=== PATIENT | male | born 1975 | race African-American/Black ===

== ENCOUNTER 2022-01-21 14:47 | Outpatient (CLI) | payer OTHER, SELFPAY ==
--- NOTE | ~2022-01-21 | XR_ITS ---
XR chest 2V 01/21/2022 15:22 Indication: Tobacco use. Procedure: 2 view chest Comparison: 10/28/2015 Findings: Subtle left perihilar/infrahilar airspace disease, suspicious for pneumonia. Heart size nor mal. No pleural effusion or pneumothorax. No edema. Impression: 1: Subtle left perihilar/infrahilar airspace disease, suspicious for pneumonia. Reviewed, dictated and finalized at location A. Impression: 1: Subtle left perihilar/infrahilar airspace disease, suspicious for pneumonia.
[2022-01-21 16:54] LABS: Hematocrit 45.2 % (42.0-52.0); Hemoglobin 15.6 g/dL (14.0-18.0); Mean Corpuscular HGB Conc 34.5 g/dl (32-36); Mean Corpuscular Hemoglobin 31.5 pg (26-34); Mean Corpuscular Volume 91.1 fl (80-100); Mean Platelet Volume 11.8 fl (7.4-10.4); Platelet Count Result 257 k/mm3 (150-375); Red Blood Count 4.96 M/mm3 (4.6-6.20); Red Cell Distribution Width 13.6 % (11.5-14.5); White Blood Count 13.9 K/mm3 (4.5-10.0)
[2022-01-21 18:36] LABS: Vitamin D 25 Hydroxy 22.3 ng/mL
== END 2022-01-21 14:48 | disposition home or self-care (01) ==
LOC: ANHIMG 15:04
PROVIDERS: PCP Emergency Medicine; Visit Provider Emergency Medicine
DX: D69.6 Thrombocytopenia, unspecified (principal); Z72.0 Tobacco use
CPT/HCPCS: 36415; 71046; 82306; 85027

== ENCOUNTER 2022-02-16 13:21 | Outpatient (CLI) | payer OTHER, SELFPAY ==
--- NOTE | ~2022-02-16 | XR_ITS ---
EXAMINATION: XR chest 2V Exam Date/Time: 02/16/2022 13:35 CDT CLINICAL HISTORY: PHEUMONIA Comparison: 01/21/2022 and 10/28/2015. RESULT: Lines, tubes, and devices: None. Lungs and pleura: Subtle ill-defined groundglass opacities in the lower lungs. Positive spine sign in the lateral view. Cardiomediastinal silhouette: Stable cardiomediastinal silhouette. Other: No acute osseous or upper abdominal finding. IMPRESSION: Pulmonary findings may reflect pneumonia in the appropriate clinical context, to include atypical/vir al etiologies. Reviewed, dictated and finalized at location K. IMPRESSION: Pulmonary findings may reflect pneumonia in the appropriate clinical context, t o include atypical/viral etiologies.
== END 2022-02-16 13:22 | disposition home or self-care (01) ==
PROVIDERS: PCP Emergency Medicine; Visit Provider Emergency Medicine
DX: J18.9 Pneumonia, unspecified organism (principal)
CPT/HCPCS: 71046

== ENCOUNTER 2022-03-26 11:40 | Outpatient (CLI) | payer OTHER, SELFPAY ==
--- NOTE | ~2022-03-26 | XR_ITS ---
XR chest 2V DATE: 03/26/2022 12:04 INDICATION: Pneumonia follow-up TECHNIQUE: PA and lateral views COMPARISON: February 14, 2022, January 21, 2022 PA and lateral chest radiographs FINDINGS: There is mild atelectasis and possible infiltrate at the left lung base. The lungs otherwis e appear clear. Normal heart size. No hilar or mediastinal enlargement. Included skeletal structures are unremarkable. IMPRESSION: Mild atelectasis and possible infiltrate at the left lung base Reviewed, dictated and finalized at location A.
[2022-03-26 13:36] LABS: Hematocrit 48.1 % (42.0-52.0); Hemoglobin 16.2 g/dL (14.0-18.0); Mean Corpuscular HGB Conc 33.7 g/dl (32-36); Mean Corpuscular Hemoglobin 30.6 pg (26-34); Mean Corpuscular Volume 90.9 fl (80-100); Mean Platelet Volume 12.2 fl (7.4-10.4); Platelet Count Result 258 k/mm3 (150-375); Red Blood Count 5.29 M/mm3 (4.6-6.20); Red Cell Distribution Width 13.3 % (11.5-14.5); White Blood Count 11.4 K/mm3 (4.5-10.0)
== END 2022-03-26 11:41 | disposition home or self-care (01) ==
PROVIDERS: PCP Emergency Medicine; Visit Provider Emergency Medicine
DX: R93.89 Abnormal findings on diagnostic imaging of other specified body structures (principal); D72.829 Elevated white blood cell count, unspecified; F17.210 Nicotine dependence, cigarettes, uncomplicated
CPT/HCPCS: 36415; 71046; 85027

== ENCOUNTER 2023-10-01 09:26 | Outpatient (CLI) | payer OTHER, SELFPAY ==
[2023-10-01 10:01] LABS: Hematocrit 47.7 % (42.0-52.0); Hemoglobin 15.7 g/dL (14.0-18.0); Mean Corpuscular HGB Conc 32.9 g/dl (32-36); Mean Corpuscular Hemoglobin 31.2 pg (26-34); Mean Corpuscular Volume 94.8 fl (80-100); Platelet Count Result 241 k/mm3 (150-375); Red Blood Count 5.03 M/mm3 (4.6-6.20); Red Cell Distribution Width 14.2 % (11.5-14.5); White Blood Count 9.4 K/mm3 (4.5-10.0)
[2023-10-01 10:05] LABS: Appearance Urine Clear (Clear); Bacteria Urine None Seen /hpf; Bilirubin Urine Negative (Negative); Blood Urine Trace (Negative); Color Urine Yellow (Yellow); Glucose Urine UA Negative (Negative); Ketones Urine Negative (Negative); Leukocyte Esterase Ur Negative LEU/UL (NEGATIVE); Nitrate Urine Negative (Negative); Non Pathogenic Casts 0-2; Protein Urine Negative (Negative); RBC Urine 0-2 /hpf (0-2); Specific Grav Ur 1.009 (1.001-1.035); Squamous Epithelial Cell Urine None seen /hpf (Few); Urobilinogen Urine 0.2 mg/dL (<2.0); WBC Urine 0-5 /hpf (0-3); pH Urine 6.5 (5.0-9.0)
[2023-10-01 10:13] LABS: Add Urine Microscopic? YES
[2023-10-01 10:21] LABS: Alanine Aminotransferase 22 U/L (6-50); Albumin Level 4.2 g/dL (3.5-5.1); Alkaline Phosphatase 137 U/L (38-126); Anion Gap 9 mmol/L (8-16); Aspartate Amino Transferase 20 U/L (17-59); Bilirubin,Total 0.4 mg/dL (0.2-1.3); Blood Urea Nitrogen 7 mg/dL (9-20); Calcium 9.4 mg/dL (8.4-10.2); Carbon Dioxide 26 mmol/L (22-30); Chloride 105 mmol/L (98-107); Cholesterol 222 mg/dL (0-200); Estimated Glomerular Filt Rate > 60; Glucose 116 mg/dL (65-110); HDL Direct 35 mg/dL; Potassium 3.9 mmol/L (3.4-5.0); Sodium 140 mmol/L (137-145); Triglycerides 206 mg/dL (<150)
[2023-10-01 10:31] LABS: LDL Cholesterol Direct 139 mg/dL
[2023-10-01 10:43] LABS: Hemoglobin A1C 5.5 % (<5.7)
[2023-10-01 10:45] LABS: MALB Creatinine Ratio 8.4 mg/g (0-30); Microalbumin Urine Random 10.2 mg/L (0-16.7)
[2023-10-01 10:51] LABS: Prostate Specific Antigen 0.8 ng/mL (< OR = 4.0); Thyroid Stimulating Hormone 0.813 uIU/mL (0.465-4.680)
[2023-10-01 10:56] LABS: Free T4 Free Thyroxine 1.12 ng/mL (0.78-2.19); Vitamin D 25 Hydroxy 13.2 ng/mL
== END 2023-10-01 09:27 | disposition home or self-care (01) ==
LOC: ANHLAB 09:29
PROVIDERS: PCP Emergency Medicine; Visit Provider Emergency Medicine
DX: R51.9 Headache, unspecified (principal); D72.829 Elevated white blood cell count, unspecified; J45.909 Unspecified asthma, uncomplicated
CPT/HCPCS: 36415; 80053; 80061; 81001; 82043; 82306; 83036; 84153; 84439; 84443; 85027

== ENCOUNTER 2024-05-24 09:05 | Outpatient (CLI) | payer MEDICAID, SELFPAY ==
--- NOTE | ~2024-05-24 | US_ITS ---
US right upper quadrant INDICATION: Elevated liver enzymes PROCEDURE: Realtime right upper abdominal ultrasound. COMPARISON: No prior studies for comparison. FINDINGS: The pancreas is normal without focal mass or pancreatic ductal dilation. Liver echotexture is increased, consistent with fatty infiltration. There is normal directional flow in the portal ve in. There are gallstones. No gallbladder wall thickening or pericholecystic fluid. Common bile duct madeleine ures 4 mm. No sonographic Ring's sign. IMPRESSION: 1: Fatty infiltration of the liver. 2: Gallstones. Reviewed, dictated and finalized at location B.
== END 2024-05-24 09:06 | disposition home or self-care (01) ==
LOC: ANHIMG 09:09
PROVIDERS: PCP Emergency Medicine; Visit Provider Emergency Medicine
DX: K76.0 Fatty (change of) liver, not elsewhere classified (principal); K80.20 Calculus of gallbladder without cholecystitis without obstruction
CPT/HCPCS: 76705